=== PATIENT | female | born 1960 | race Caucasian/White ===

== ENCOUNTER 2025-03-27 17:48 | Outpatient (CLI) | payer MEDICARE, BC, SELFPAY ==
[2025-03-27 21:10] LABS: Bacterial Vaginosis* Negative (Negative); Candida glab/krus NOT DETECTED (No Detected); Candida species NOT DETECTED (No Detected); Trichomonas vaginalis NOT DETECTED (No Detected)
== END 2025-03-27 17:49 | disposition home or self-care (01) ==
PROVIDERS: PCP Family Medicine; Visit Provider Registered Nurse
DX: N89.8 Other specified noninflammatory disorders of vagina (principal)
CPT/HCPCS: 81513; 87481; 87661

== ENCOUNTER 2025-05-11 06:07 | Day surgery (SDC) | payer MEDICARE, BC, SELFPAY ==
[2025-05-11] VITALS (21 sets, daily range): BP systolic 103–151; BP diastolic 50–83; PULSE 48–68; RESP 14–20; TEMP 35.3–37.3; O2SAT 97–100; BMI 22.4
[2025-05-11] MEDS: ACETAMINOPHEN 500 MG TABLET 1000 MG PO ×2 (06:28→20:30)
[2025-05-11 06:48] LABS: Hemoglobin* 14.3 gm/dL (12.0-16.0)
[2025-05-11] MEDS: SCOPOLAMINE 1 MG/3 DAY PATCH 1 PATCH TRANSDERMA (06:50)
[2025-05-11] MEDS: SODIUM CHLORIDE 0.9 % (FLUSH) 10 ML SYRINGE IVF ×3 (06:52→23:26)
[2025-05-11] MEDS: LACTATED RINGERS 1000 ML 1,000 ML 100 ML IV (06:52)
[2025-05-11 07:07] LABS: Creatinine* 0.7 mg/dL (0.5-1.5); Est. Creatinine Clearance* 48.43; Estimated Glomerular Filt Rate 96 ml/min
--- NOTE | 2025-05-11 07:08 | W.PM.H&PU ---
History & Physical Update History & Physical Update H&P Reviewed and patient assessed: No changes noted
[2025-05-11] MEDS: CEFAZOLIN 2 GM INJ IVP (07:41)
[2025-05-11] MEDS: FLUORESCEIN 10% INJ 500 MG IVP (08:16)
--- NOTE | 2025-05-11 08:42 | P.ANES_ITS ---
Anesthesia Charges Start Date/Time Anesthesia Start Date: 05/11/25 Anesthesia Start Time: 07:15 Stop Date/Time Anesthesia Stop Date: 05/11/25 Anesthesia Stop Time: 10:02 Coding CPT Codes CPT Codes: ANESTH VAGINAL HYSTERECTOMY - 96622 ([id number]) P3 - PATIENT W/SEVERE SYS DISEASE, QK - CARDIOLOGY COORDINATOR 2-4 CNCRNT ANES PROC, QX - FEED MANAGER SVC W/ MD MED DIRECTION
--- NOTE | 2025-05-11 08:42 | W.ANESCHARGE ---
Anesthesia Charges Start Date/Time Anesthesia Start Date: 05/11/25 Anesthesia Start Time: 07:15 Stop Date/Time Anesthesia Stop Date: 05/11/25 Anesthesia Stop Time: 10:02 Coding CPT Codes CPT Codes: ANESTH VAGINAL HYSTERECTOMY - 50636 ([id number]) P3 - PATIENT W/SEVERE SYS DISEASE, QK - FLAT OPTICAL ELEMENT MAKER 2-4 CNCRNT ANES PROC, QX - ACID STRENGTH INSPECTOR SVC W/ MD MED DIRECTION
[2025-05-11] MEDS: LIDOCAINE 1%-EPI 1:100,000 20 ML INFILTRATI (08:55)
--- NOTE | 2025-05-11 10:02 | P.ANES_ITS ---
Anesthesia Charges Start Date/Time Anesthesia Start Date: 05/11/25 Anesthesia Start Time: 07:15 Stop Date/Time Anesthesia Stop Date: 05/11/25 Anesthesia Stop Time: 10:02 Coding CPT Codes CPT Codes: ANESTH VAGINAL HYSTERECTOMY - 49437 ([id number]) P3 - PATIENT W/SEVERE SYS DISEASE, QK - DYE RANGE OPERATOR CLOTH 2-4 CNCRNT ANES PROC, QX - COO & CO FOUNDER SVC W/ MD MED DIRECTION
--- NOTE | 2025-05-11 10:02 | W.ANESCHARGE ---
Anesthesia Charges Start Date/Time Anesthesia Start Date: 05/11/25 Anesthesia Start Time: 07:15 Stop Date/Time Anesthesia Stop Date: 05/11/25 Anesthesia Stop Time: 10:02 Coding CPT Codes CPT Codes: ANESTH VAGINAL HYSTERECTOMY - 09972 ([id number]) P3 - PATIENT W/SEVERE SYS DISEASE, QK - METAL TESTER 2-4 CNCRNT ANES PROC, QX - SOCIAL SCIENCES INSTRUCTOR SVC W/ MD MED DIRECTION
--- NOTE | 2025-05-11 10:37 | W.PM.GYNPROC ---
Procedure Note Date of procedure: 05/11/25 Will [facility] bill your pro fee for this procedure?: Yes Pre-op diagnosis: Symptomatic stage II uterine prolapse, cystocele Post-op diagnosis: Perineal body defect Otherwise as above Procedure: Total vaginal hysterectomy with bilateral salpingo-oophorectomy, modified Jang's culdoplasty, anterior colporrhaphy, perineorrhaphy, cystoscopy Anesthesia: MAC and spinal Complications: None Surgeon: Colleen Cadena MD Tread Tuber Machine Operator: Rafaela Bustillos Estimated blood loss (mL): 30 IV fluids (mL): 900 Urine Output (mL): 100 Pathology: specimen obtained, sent to pathology (Uterus, cervix, bilateral tubes and ovaries) Condition: stable Disposition: floor Findings: 1. Upon pelvic exam under anesthesia, the vulva was normal. The vaginal introitus was small, and a perineal body defect was recognized. Uterus was mobile and anteverted, of normal size and texture. There were no palpable adnexal masses. 2. Uterus was small but normal in appearance, weighing 60 g. Normal appearance to bilateral tubes and ovaries. 3. Upon cystoscopy, bilateral ureteral jets were noted multiple times, including after the last suspension suture was placed. Bladder mucosa was normal appearance. Procedure Description: PROCEDURE: Patient was taken to the operating room with IV running. She received cefazolin in preoperative prophylaxis. She was positioned on the operating table in dorsal lithotomy position with candy-cane stirrups. She was prepped and draped in the usual sterile fashion. Strickland catheter was inserted. Exam under anesthesia revealed the above-noted findings. The vaginal introitus was noted to be small with intact perineal skin but with a perineal body defect. Given that the perineal skin impeded access to the upper vagina and that the perineal body defect would later be repaired, an incision was made through the skin of the anterior perineal body with the scalpel, allowing better access to the upper vagina and pelvis. The anterior and posterior lips of the cervix were grasped with thyroid Cathy clamps. The cervicovaginal junction was infiltrated with dilute vasopressin. Cervicovaginal junction was incised with the scalpel circumferentially. The vaginal epithelium was dissected off the uterosacral ligaments with a combination of blunt and sharp dissection bilaterally. The anterior colpotomy was performed sharply and a Fiorella was placed between the uterus and bladder. Posterior colpotomy was performed sharply and a long weighted speculum was placed in the cul-de-sac. Bilateral uterosacral ligaments were clamped, cut, and suture ligated, and tagged for later identification. The cardinal ligaments were clamped, cut, and suture ligated. The LigaSure Impact device was used to coagulate and transect the remnants of the broad ligament, the utero-ovarian ligaments and the fallopian tubes bilaterally. This freed the uterus from its attachments and it was delivered through the vagina. Attention was 1st turned to the right tube and ovary, which was physically normal in appearance. The infundibulopelvic ligament was tied with a single suture of 0 Vicryl. The ligament was coagulated distally to this tie with the LigaSure Impact device and the right tube and ovary were amputated and removed from the pelvis. Hemostasis was noted. This procedure was repeated on the left side and hemostasis was again noted. The bowels were moved out of the pelvis with packing and the patient was placed in Trendelenburg position. The 3 modified Jang's sutures were placed as follows. The 1st was placed approximately 1 cm medial to the left vaginal angle, through the left uterosacral ligament approximately 2.5 cm above the vaginal cuff, pulled through the peritoneum of the cul-de-sac, through the right uterosacral ligament, approximately 2.5 cm above the cuff, and through the vagina about 1 cm from the right vaginal cuff angle. This was labeled #1 and tagged for later identification. Another stitch was placed just medial to the 1st through the vaginal cuff, and just above the 1st along the uterosacral ligaments and the peritoneum of the cul-de-sac. This was labelled #2 and tagged for later identification. Finally, a Jang suture was placed, moving from the left uterosacral to the right uterosacral, along the peritoneum of the cul-de-sac, above the is the 2nd suture. This was labeled #3 and tagged for later identification. Attention was turned to the anterior vaginal wall. It was infiltrated Marcaine with dilute epinephrine. An incision was made from the vaginal cuff proceeding to the urethrovesical junction. The vaginal epithelium was dissected off the fibromuscularis beneath it with a combination of first sharp, with then blunt dissection at the angles. This was done bilaterally. The fibromuscularis was then plicated in the midline with interrupted sutures of 0 Vicryl. The vaginal epithelium was trimmed slightly on the each side, and the vaginal epithelium was closed with a running stitch of 2-0 Vicryl. The first of several cystoscopies was performed, revealing no damage to the bladder mucosa. The patient was given sodium fluorescein for better visualization of ureteral jets in cystoscopies to follow. The cystoscope was removed. Then, the modified Jang's sutures were tied down beginning with that labeled #3 first, followed by #2 and then #1. After tying down each of the sutures, cystoscopy was performed, revealing bilateral ureteral jets. Thereafter, the vaginal epithelium was closed in a vertical fashion, incorporating the distalmost aspects of the uterosacral ligaments into the cuff angle closures. This was done in an interrupted fashion with 0 Vicryl. The Strickland catheter was replaced. Attention was then turned to the perineal body. The vagina was grasped bilateral at the remnants of the hymeneal ring, and the submucosa was injected with a small amount of Marcaine with epinephrine. The vaginal epithelium was dissected off the underlying fibromuscularis for a short length just above the remnants of the hymeneal ring; this was done sharply. The perineal body was dissected away from the epithelium of the posterior introitus and the anterior perineal body; it was noted to be thickened and scarred. Thereafter, the perineal body was plicated in the midline using interrupted sutures of 0 Vicryl. The vaginal and perineal skin were then closed in a running fashion with 2-0 Vicryl. Hemostasis was noted. The patient tolerated the procedure well and was taken to recovery area in stable condition.
[2025-05-11] MEDS: TRAMADOL HCL 50 MG TABLET PO ×2 (12:18→18:39)
[2025-05-11] MEDS: GABAPENTIN 300 MG CAPSULE 600 MG PO ×2 (13:38→20:30)
--- NOTE | 2025-05-11 15:58 | PC.NURSE ---
End of shift [id number] - Pt arrived from PACU at approximately 1045. Alert, oriented, cooperative and able to follow directions. Up with standby assistance/independent. Tolerating RA and regular diet/fluids. Pt reported abdominal cramping and low back pain as 4-6/10. Medication given per MAR with pt reporting improved comfort. Strickland catheter removed per MD order. Pt observed to ambulate in halls. Pt appears to be resting comfortably at end of shift with call light within reach.
--- NOTE | 2025-05-11 18:22 | PC.NURSE ---
Shift Summary 15-19: Patient pleasant and cooperative. Up walking in halls frequently. Tolerating regular diet, denied nausea. Pain managed with scheduled medication. Attempted to have ness out, patient unable to void after 30min, Dr. Cadena informed and ordered new ness be placed.
[2025-05-11] MEDS: DOCUSATE SODIUM 100 MG CAPSULE PO (20:35)
[2025-05-12] MEDS: TRAMADOL HCL 50 MG TABLET PO (02:57)
[2025-05-12 03:00] VITALS: BP 94/50; PULSE 78; RESP 16; TEMP 37; O2SAT 98
[2025-05-12] MEDS: SODIUM CHLORIDE 0.9 % (FLUSH) 10 ML SYRINGE IVF (05:44)
[2025-05-12 06:26] LABS: Hemoglobin* 12.2 gm/dL (12.0-16.0)
[2025-05-12 06:44] LABS: Creatinine* 0.7 mg/dL (0.5-1.5); Est. Creatinine Clearance* 48.43; Estimated Glomerular Filt Rate 96 ml/min
--- NOTE | 2025-05-12 06:59 | PC.NURSE ---
[id number] Pt ambulating halls independently, abd pain minimal, chronic lower back pain is primary source or pain, 04/12, prn and scheduled pain meds given with some relief. pt able to sleep during the night. tolerating PO intake, no N/V. minimal vaginal bleeding during shift. bladder refilled 300cc at 0600, as of 699 Pt has not urinated, updated OB conductor/engineer, Dr. Medina, new orders received to put ness back in place and pt might need to leave in place until wednesday and have it removed in clinic.
[2025-05-12 07:00] VITALS: BP 118/74; PULSE 51; RESP 18; TEMP 36.6; O2SAT 100
[2025-05-12] MEDS: DOCUSATE SODIUM 100 MG CAPSULE PO (08:58)
[2025-05-12] MEDS: GABAPENTIN 300 MG CAPSULE 600 MG PO (08:58)
--- NOTE | 2025-05-12 09:15 | PM.GYNDS1 ---
DS: Providers Provider Date Seen: 05/12/25 Date of admission: 05/11/25 Primary care physician: Lien Weir MD Admitting Clinician: Colleen Cadena MD Attending Physician on discharge: Colleen Cadena MD Date of Discharge: 05/12/25 DS: Diagnosis Discharge Diagnosis (1) Uterovaginal prolapse: Status: Acute Problem details: Stage cyst 2 uterine prolapse and cystocele, currently managed with ring pessary with support. (2) H/O total vaginal hysterectomy: Status: Acute Problem details: with bilateral salpingoophorectomy, modified Jang's culdoplasty, anterior colporrhaphy, perineorrhaphy, and cystoscopy on 05/11/25 (3) Urinary retention: Status: Acute Problem details: PVR 140 mL on 01/07/[address] No history of urinary tract infections. (4) Genitourinary syndrome of menopause: Status: Acute MAINTENANCE FOREMAN-Discharge Summary Hospital Course Hospital Course Narrative: Alona is a 64-year-old woman who is status post total vaginal hysterectomy with bilateral salpingo-oophorectomy, modified Jang's culdoplasty, anterior colporrhaphy, cystoscopy, and perineorrhaphy on 05/11/2025 for indication of symptomatic stage II uterovaginal prolapse. Surgery was uncomplicated and intraoperative findings were notable only for perineal body defect and previously diagnosed stage II uterine prolapse. Her medical history is notable for mitral valve replacement in 03/2024. She also has a history of incomplete bladder emptying prior to surgery; PVR on 01/07/24 was 140. Vitals have been stable. She has remained afebrile. Today, on postoperative day 1, she reports the pain is well controlled. She has been able to ambulate Without difficulty. She is tolerating regular diet. She is passing flatus. As of this morning, she failed a voiding trial twice. She did not initially want the catheter reinserted. However, she does want to discharge to home today. Ultimately, we have planned for discharge with leg bag, with follow up in clinic on Wednesday for voiding trial. Time Spent with Patient Time attestation: Total time spent providing and/or coordinating discharge services: MAINTENANCE FOREMAN - Exam Physical Exam: Vital signs: Temp Pulse Resp BP Pulse Ox O2 Del Method 98.6 F 78 16 94/50 L 98 Room Air 05/12/25 03:00 05/12/25 03:00 05/12/25 03:00 05/12/25 03:00 05/12/25 03:00 05/12/25 03:00 Narrative: General: Pleasant, no acute distress Heart: Regular rate and rhythm, no murmur or gallop Lungs: Clear to auscultation bilaterally Abdomen: Normoactive bowel sounds in all 4 quadrants, soft, no tenderness, rebound or guarding, no distension Lower extremities: No edema or erythema MAINTENANCE FOREMAN - DS: Data Data Completed and Pending Labs on day of discharge: Labs from last 24 hours 05/12/25 05:53 Hgb 12.2 Creatinine 0.7 Estimated Creat Clear 48.43 Estimated GFR 96 Procedures Procedures: Procedures Operation Date: 05/11/25 07:15 Actual Procedure Side Surgeon p Total Vaginal Hysterectomy, Bilateral Salpingo-oopherectomy, Modified McCalls Culdoplasty, Anterior Colporrhaphy, Cystoscopy, Perineorrhaphy Colleen Cadena MD Complications: none Discharge Plan Discharge Disposition: Home w/ Parent or Adult Discharging Surgeon: Colleen Cadena Follow-Up Appointment: Wednesday for voiding trial; triage nurse to call with appointment. 2 & 6 week Prescriptions: New acetaminophen 500 mg Tablet 1,000 mg PO Q6H PRNQty: 0 0RF docusate sodium 100 mg Capsule 100 mg PO BID PRN (Reason: Constipation) Qty: 0 0RF tramadol 50 mg Tablet 50 mg PO Q4H PRNQty: 20 0RF ibuprofen 600 mg Tablet 600 mg PO Q6H Qty: 0 0RF Continued calcium carbonate [Calcium 600] 600 mg calcium (1,500 mg) tablet 600 mg PO DAILY aspirin 81 mg tablet,chewable 81 mg PO DAILY alendronate 70 mg tablet 70 mg PO Q7D estradiol [Estrace] 0.01 % (0.1 mg/gram) cream 0.5 g vaginal 2XW Qty: 42.5 3RF Rx Instructions: Use nightly for 2 weeks, then twice weekly. May apply with finger. tramadol 50 mg tablet 50 mg PO BID PRN rosuvastatin 5 mg tablet 5 mg PO HS gabapentin 300 mg capsule 600 mg PO TID Activity Detail: As in patient instructions Discharge Diet: Regular Patient Instructions: Scopolamine (Absorbed through the skin) (Transderm Scop), NH+C Vaginal Hysterectomy Follow-up: Colleen Cadena MD [Staff Physician, MEDICAL RECORDS DIRECTOR] Lien Weir MD [Primary Care Provider, Family Practice] Discharge Orders: Discharge Order (Routine); Ordered 05/12/25 Ordered By: Colleen Cadena
--- NOTE | 2025-05-12 13:45 | PC.NURSE ---
Discharge - Pt alert, oriented, cooperative. Observed to ambulate in halls. Denied pain, SOB, n/v. Pt not able to void, Strickland catheter re-inserted per MD order. Pt education given regarding leg bag and Strickland catheter care. Scant serosanguineous drainage noted on pt peripad. IV removed with catheter intact. D/C education given with pt verbalizing understanding. Pt d/c to home via ambulation with spouse.
== END 2025-05-12 13:15 | disposition home or self-care (01) ==
LOC: OR 06:10 → MEDSURG 06:11
PROVIDERS: PCP Family Medicine; Visit Provider Obstetrics & Gynecology
PROC: (CPT 58263; principal; 2025-05-11 07:15)
DX: N81.2 Incomplete uterovaginal prolapse (principal); R33.8 Other retention of urine; N95.8 Other specified menopausal and perimenopausal disorders; N89.8 Other specified noninflammatory disorders of vagina
CPT/HCPCS: 58263; 57240; 00944; 36415; 51701; 82565; 85018; 86850; 86900; 86901; A4314; A9270; J0690; J1100; J1885; J1938; J2250; J2270; J2371; J2405; J2704; J3010; J7120